=== PATIENT | female | born 1980 | race African-American/Black ===

== ENCOUNTER 2021-02-28 06:34 | Day surgery (SDC) | payer OTHER, SELFPAY ==
[~2021-02-28] VITALS: Ht 170.2 cm; Wt 59.0 kg
[2021-02-28] MEDS ORDERED: MIDAZOLAM 5 MG/5 ML VIAL ONE (07:40)
[2021-02-28] MEDS ORDERED: diphenhydrAMINE 50 MG/ML VIAL ONE (07:40)
[2021-02-28] MEDS ORDERED: fentaNYL citrate 0.05 MG/ML VIAL ONE (07:40)
[2021-02-28] MEDS ORDERED: fentaNYL citrate 0.05 MG/ML VIAL IVP ONE (09:45)
[2021-02-28] MEDS ORDERED: MIDAZOLAM 2 MG/2 ML VIAL IVP ONE (09:45)
== END 2021-02-28 09:35 | disposition home or self-care (01) ==
LOC: MDS 06:34 → MMU 06:35 → MDS 09:35
PROVIDERS: ATTEND Internal Medicine Gastroenterology
DX: R10.9 Unspecified abdominal pain (principal); K21.9 Gastro-esophageal reflux disease without esophagitis; K29.80 Duodenitis without bleeding; Z79.899 Other long term (current) drug therapy; Z20.822 Contact with and (suspected) exposure to COVID-19
CPT/HCPCS: 43239; 81025; 88305; 88312; 88313; 88342; J2250; J3010; U0003; J1200